=== PATIENT | male | born 1935 | race Caucasian/White ===

== ENCOUNTER 2022-02-27 00:08 | Inpatient (IN) ==
[2022-02-27] MEDS ORDERED: 0.9 % SODIUM CHLORIDE 1,000 ML IV ONE (00:18)
[2022-02-27 00:23] LABS: POC Calcium, Ionized 1.73 (1.16-1.32); POC Creatinine 1.2 (0.6-1.2); POC Potassium 2.5 (3.3-5.1)
--- NOTE | 2022-02-27 00:34 | Emergency Department Note ---
Recheck HPI General Chief Complaint: Recheck/Abnormal Lab/Rx Stated Complaint: Electrolyte deficiency Time Seen by Provider: 02/27/22 00:11 Source: patient and family Mode of arrival: ambulatory Limitations: no limitations and other (Sleeping, lethargic) History of Present Illness HPI Narrative: Narrative: Patient presents to the ED with complaints of abnormal labs. Apparently patient is scheduled to have a feeding tube placed tomorrow with Dr. Chavez. Patient had appoint with Dr. Chavez earlier today where labs were obtained. Lab results show that patient's potassium without a critical level and his calcium was also elevated. Patient states that she was called by Dr. Chavez's partner to come into the ED. states that patient has been extremely weak over the last couple days with decreased energy. She denies fever, chills, nausea, vomiting, abdominal pain, diarrhea, cough, sputum production, shortness of breath. Patient is lethargic and not really participate in my interview so all history was obtained from the . reports that this is very late in the evening for him and he is just super weak and tired. She states that patient has not eaten much food in the last week which is why they were going to have the feeding tube placed. Denies any other alleviating or aggravating factors. Related Data Home Medications Medication Instructions Recorded Confirmed turkey tail See Rx Instructions .Route .COMPLEX 01/16/22 02/27/22 PreserVision AREDS 1,000 mg PO BID 02/27/22 02/27/22 Vitamin D3 2,000 mg PO 3XD 02/27/22 02/27/22 coenzyme Q10 100 mg capsule 300 mg PO QDAY 02/27/22 02/27/22 (CoQ-10) garlic 1,000 mg PO DAILY 02/27/22 02/27/22 metoclopramide HCl 10 mg tablet 1 tab PO QID 02/27/22 02/27/22 spironolactone 25 mg tablet 25 mg PO QDAY 02/27/22 02/27/22 Previous Rx's Medication Instructions Recorded pravastatin 40 mg tablet 40 mg PO HS #90 tabs 09/05/21 Allergies Allergy/AdvReac Type Severity Reaction Status Date / Time Qexcrxx-XIU-TwM Reductase Allergy Intermediate Unknown Verified 02/26/22 15:23 Inhibitor [Qjzhouy-Rtj-Zlt Reductase Inhibitor] Penicillins Allergy Unknown Unknown Verified 02/26/22 15:23 Review of Systems ROS ROS Narrative: Narrative: All systems ED: reviewed and negative except as stated. [facility] Narrative Patient History Narrative: Narrative: Medical/Surgical/Family History All Active Problems (Updated 02/27/22 @ 00:34 by Anmol Garcia DO) Acute hypokalemia (Acute) Hypercalcemia (Acute) Generalized weakness (Acute) Poor nutrition (Acute) Constipation (Acute) Acute dehydration (Acute) Decreased oral intake (Acute) Vitamin B12 deficiency (Acute) Urothelial carcinoma of kidney (Acute) Depression (Acute) Advanced care planning/counseling discussion (Acute) Hypercalcemia (Acute) Disturbances of sensation of smell and taste (Acute) Unintentional weight loss (Acute) Decreased appetite (Acute) Lung nodules (Acute) Kidney mass (Acute) UTI (urinary tract infection) (Acute) HLD (hyperlipidemia) (Acute) Fatigue (Acute) Right knee pain (Acute) Low HDL (under 40) (Acute) Leukocytosis (Acute) Medicare annual wellness visit, subsequent (Chronic) Perirectal abscess (Chronic ~07/2009) Adenomatous colon polyp (Chronic) Myocardial infarction (Chronic) Annual physical exam (Chronic) Impingement syndrome of right shoulder (Chronic) CAD (coronary artery disease) (Chronic ~10/2008) HTN (hypertension) (Chronic) Hyperlipidemia (Chronic) Adenocarcinoma of prostate (Chronic) Encounter for preventative adult health care examination (Chronic) Tubulovillous adenoma of colon (Chronic) Abscess of skin or subcutaneous tissue (Chronic) Medical History Abscess of skin or subcutaneous tissue Adenocarcinoma of prostate Adenomatous colon polyp 05/2001, 05/2004 Advanced care planning/counseling discussion Annual physical exam CAD (coronary artery disease) (~10/2008) Constipation Decreased appetite Depression Disturbances of sensation of smell and taste Encounter for preventative adult health care examination Fatigue HLD (hyperlipidemia) HTN (hypertension) Hypercalcemia Hyperlipidemia Impingement syndrome of right shoulder Leukocytosis Low HDL (under 40) Myocardial infarction Perirectal abscess (~07/2009) Right knee pain Tubulovillous adenoma of colon Unintentional weight loss Urothelial carcinoma of kidney UTI (urinary tract infection) Vitamin B12 deficiency Surgical History History of cholecystectomy (~1997) History of colonoscopy (06/25/17) [facility] - Dr. Matt. Normal, return prn. History of heart bypass surgery (~2008) History of left knee replacement (~09/2014) History of prostatectomy (~02/1996) Family History Father Liver cancer High blood pressure Mother Leukemia High blood pressure Brother Diabetes Social History Smoking Status: Never smoker Alcohol Intake Frequency: does not drink Substance Use: does not use Exam Narrative Narrative: Narrative: General Limitations: no limitations and other (Sleeping, lethargic) General appearance: Present sleepy Head Head: Present atraumatic and normocephalic Eye Eye: Present PERRL and EOMI Respiratory Respiratory: Present normal lung sounds bilaterally; Absent respiratory distress Cardiovascular Cardiovascular: Present regular rate and normal rhythm Neurological Neurological: Present alert and other (Lethargic) Skin Skin: Present warm (WNL) and normal color Course Course Course Narrative: For Rowena abnormality. Labs show that patient was hypokalemic with potassium of 2.5 and hypercalcemia with a calcium level of 3.1. EKG showed no changes. Patient was given IV fluids and started on IV potassium replacement. Patient is lethargic right now so avoiding keep him n.p.o. Case was discussed with hospitalist, Dr. Fletcher, who is graciously excepted patient as admission to the hospital for generalized weakness secondary to electrolyte disorder. request that patient be made a full code which we will respect. Plan was discussed with patient and and his expressed verbal understanding agreement. Consultations Consultation #1: Discussed with hospitalist, Dr. Fletcher, who is graciously excepted patient for admission to the hospital Time: 00:38 Vital Signs Vital signs: Vital Signs Temperature 96.8 F L 02/27/22 00:09 Pulse Rate 88 02/27/22 00:09 Respiratory Rate 14 02/27/22 00:09 Blood Pressure 133/92 02/27/22 00:09 Pulse Oximetry (%) 94 02/27/22 00:09 Oxygen Delivery Method 02/27/22 00:09 Temperature 97 F 02/27/22 02:00 Pulse Rate 146 H 02/27/22 03:30 Respiratory Rate 20 02/27/22 02:10 Blood Pressure 110/65 02/27/22 02:46 Pulse Oximetry (%) 87 L 02/27/22 03:30 Oxygen Delivery Method 02/27/22 01:14 Oxygen Flow Rate (L/min) 2 02/27/22 01:17 MDM MDM Narrative Medical decision making narrative: Narrative: Differential Diagnosis Differential Diagnosis: Hypokalemia, hypercalcemia, poor nutrition Medical Records Medical records reviewed: Yes I reviewed the patient's medical records. Lab Data Lab results reviewed: Yes I reviewed the patient's lab results. Labs: Lab Results 02/27/22 02/27/22 02/27/22 Range/Units 00:21 00:31 00:41 POC Hct 29.0 L (41-55) POC Sodium 135 (133-145) POC Potassium 2.5 L* (3.3-5.1) POC Chloride 96 (96-108) POC Total CO2 33.0 H (22-30) POC BUN 22 H (6-20) POC Creatinine 1.2 (0.6-1.2) POC Glucose 85 (70-105) Calcium 12.4 H (8.6-10.4) mg/dL POC WB Ioniz Calcium 1.73 H* (1.16-1.32) Magnesium 2.5 (1.6-2.5) mg/dL EKG Data EKG #1: EKG attestation: Yes I reviewed and interpreted this EKG. EKG shows normal: sinus rhythm Rate: normal Rhythm: NSR P waves: LAE Heart block present: None ST segment elevation in: None ST segment depression in: None Hyperacute T waves: None QTc: normal QRS morphology: Present normal Interpretation: no acute changes Core Measures AMI Core Measures Followed: Yes Discharge Plan Patient/Caregiver Discharge Instructions Pt seen by BI SPECIALIST/PA only: No Clinical Impression: Acute hypokalemia, Hypercalcemia, Generalized weakness, Poor nutrition Activity: resume usual activities as tolerated Patient Disposition: Xfer As Inpt ([facility]) Condition: Fair Discharge Date/Time: 02/27/22 01:45 Discharge Location: [facility] Discharge Comment: to 116
[2022-02-27] MEDS ORDERED: POTASSIUM CHLORIDE 40 MEQ in DEXTROSE 5% IN WATER 500 ML IV ONE ×2 (00:36→16:00)
[2022-02-27] MEDS ORDERED: ONDANSETRON 4 MG/2 ML VIAL IV ONE (00:38)
[2022-02-27] MEDS ORDERED: ACETAMINOPHEN 325 MG TABLET PO PRN (00:38)
[2022-02-27] MEDS ORDERED: POTASSIUM CHLORIDE 40 MEQ/20 ML VIAL IV ONE (01:01)
[2022-02-27] MEDS: 0.9 % SODIUM CHLORIDE 1,000 ML IV SCH ×3 (03:25→20:45)
--- NOTE | 2022-02-27 08:16 | Internal Med History&Physical ---
HPI History of Present Illness Patient information: Note initiated : 02/27/22 at 8:04 am Service Date, if different from initiated Date: [] Patient: Vipul Tucker 86 y/o M admitted on 02/27/22 for Electrolyte deficiency. Chief Complaint: [] History of present illness: Mr. Tucker is a 86 year old M Presents to the ED for abnormal laboratory work. 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 Patient has has had significant weight loss and poor appetite. also says he sometimes has a hard time swallowing. He was scheduled to get a feeding tube placed by the surgeon who got some updated labs and found his laboratory work to be abnormal with a low potassium and elevated calcium. Preop chest x-ray also showed innumerable pulmonary parenchymal masses that have increased in size since January 24 imaging. Review of Systems: Pertinent positives as above. Denies headache/fever/chills/nausea/vomiting/chest or abdominal pain/cough/dyspnea/diarrhea. Remaining 10 point review of system reviewed negative PFSH PFSH All Active Problems (Updated 02/27/22 @ 00:34 by Anmol Garcia DO) Acute hypokalemia (Acute) Hypercalcemia (Acute) Generalized weakness (Acute) Poor nutrition (Acute) Constipation (Acute) Acute dehydration (Acute) Decreased oral intake (Acute) Vitamin B12 deficiency (Acute) Urothelial carcinoma of kidney (Acute) Depression (Acute) Advanced care planning/counseling discussion (Acute) Hypercalcemia (Acute) Disturbances of sensation of smell and taste (Acute) Unintentional weight loss (Acute) Decreased appetite (Acute) Lung nodules (Acute) Kidney mass (Acute) UTI (urinary tract infection) (Acute) HLD (hyperlipidemia) (Acute) Fatigue (Acute) Right knee pain (Acute) Low HDL (under 40) (Acute) Leukocytosis (Acute) Medicare annual wellness visit, subsequent (Chronic) Perirectal abscess (Chronic ~07/2009) Adenomatous colon polyp (Chronic) Myocardial infarction (Chronic) Annual physical exam (Chronic) Impingement syndrome of right shoulder (Chronic) CAD (coronary artery disease) (Chronic ~10/2008) HTN (hypertension) (Chronic) Hyperlipidemia (Chronic) Adenocarcinoma of prostate (Chronic) Encounter for preventative adult health care examination (Chronic) Tubulovillous adenoma of colon (Chronic) Abscess of skin or subcutaneous tissue (Chronic) Medical History Abscess of skin or subcutaneous tissue Adenocarcinoma of prostate Adenomatous colon polyp 05/2001, 05/2004 Advanced care planning/counseling discussion Annual physical exam CAD (coronary artery disease) (~10/2008) Constipation Decreased appetite Depression Disturbances of sensation of smell and taste Encounter for preventative adult health care examination Fatigue HLD (hyperlipidemia) HTN (hypertension) Hypercalcemia Hyperlipidemia Impingement syndrome of right shoulder Leukocytosis Low HDL (under 40) Myocardial infarction Perirectal abscess (~07/2009) Right knee pain Tubulovillous adenoma of colon Unintentional weight loss Urothelial carcinoma of kidney UTI (urinary tract infection) Vitamin B12 deficiency Surgical History History of cholecystectomy (~1997) History of colonoscopy (06/25/17) [facility] - Dr. Gutierrez. Normal, return prn. History of heart bypass surgery (~2008) History of left knee replacement (~09/2014) History of prostatectomy (~02/1996) Family History Father Liver cancer High blood pressure Mother Leukemia High blood pressure Brother Diabetes Social History marital status: occupational status: employed occupation: Self-employed smoking status: Never smoker alcohol intake frequency: does not drink substance use type: does not use MEDS/ALLERGIES Home Medications and Allergies Home Medications Medication Instructions Recorded Confirmed Type pravastatin 40 mg tablet 40 mg PO HS #90 tabs 09/05/21 02/27/22 Rx turkey tail See Rx Instructions .Route .COMPLEX 01/16/22 02/27/22 History PreserVision AREDS 1,000 mg PO BID 02/27/22 02/27/22 History Vitamin D3 2,000 mg PO 3XD 02/27/22 02/27/22 History coenzyme Q10 100 mg capsule 300 mg PO QDAY 02/27/22 02/27/22 History (CoQ-10) garlic 1,000 mg PO DAILY 02/27/22 02/27/22 History metoclopramide HCl 10 mg tablet 1 tab PO QID 02/27/22 02/27/22 History spironolactone 25 mg tablet 25 mg PO QDAY 02/27/22 02/27/22 History Allergies Allergy/AdvReac Type Severity Reaction Status Date / Time Wpnzzde-PXP-SfP Reductase Allergy Intermediate Unknown Verified 02/26/22 15:23 Inhibitor [Kqgluir-Awf-Wzz Reductase Inhibitor] Penicillins Allergy Unknown Unknown Verified 02/26/22 15:23 EXAM Constitutional Vitals: Temp Pulse Resp BP Pulse Ox O2 Del Method O2 Flow Rate 96.6 F L 65 12 105/61 95 2 02/27/22 08:00 02/27/22 08:00 02/27/22 08:00 02/27/22 08:00 02/27/22 08:00 02/27/22 07:15 02/27/22 07:15 Exam: General: Alert, Awake, No acute Distress Eyes/N/T: EOMI, PERRL, Head/Neck: neck supple, normocephalic atraumatic CV: RRR, No murmurs, normal s1/s2 Pulm: Clear b/l, no wheezing/rhonchi/rales Abd: soft, nontender, +BS x4 Ext: no clubbing/cyanosis, b/l LE 2+ edema Neuro: Alert, no focal deficits, moves all extremities, CN 2-12 grossly intact, symmetrical strength b/l upper/lower, sensations intact b/l upper/lower Skin: warm/dry DATA Data Completed and Pending Labs: Labs from last 24 hours 02/27/22 02/27/22 02/27/22 00:41 00:31 00:21 POC Hct 29.0 L POC Sodium 135 POC Potassium 2.5 L* POC Chloride 96 POC Total CO2 33.0 H POC BUN 22 H POC Creatinine 1.2 POC Glucose 85 Calcium 12.4 H POC WB Ioniz Calcium 1.73 H* Magnesium 2.5 A/P Narrative A/P Narrative: A: *Electrolyte d/o (Hypokalemia/Hypercalcemia): -hypercalcemia of malignancy (likely PTHrp mechanism given tissue of origin) vs Vit D supp home med *Urothelial CA Stage IV, with Lung mets: following with oncology *Generalized weakness/deconditioning/weight loss and poor appetite: 2/2 above -plan was for feeding tube to be placed next wednesday *Chronic Leukocytosis & Anemia: 2/2 above P: -replete potassium -IVF, Bisphosphonate, f/u calcium -PTHrp,Vit D metabolites -Dietary consult - -PT/OT -CM for placement needs -f/u with oncology/pcp/Dr. Chavez -ppx: lovenox Time Spent With Patient Time: Total time spent is greater than 50% in coordination of care (as documented) at patient's floor/unit and/or counseling patient: Total time spent with greater than 50% in coordination of care (as documented) at patient's floor/unit and/or counseling patient:: Greater than 70 minutes QUALITY VTE Deep Vein Thrombosis/Pulmonary Embolism Present on Admission: No
[2022-02-27] MEDS ORDERED: ZOLEDRONIC AC/MANNITOL/0.9NACL 4 MG/100 ML PIGGYBACK IV ONE (08:23)
[2022-02-27] MEDS: VIT A,C & E/LUTEIN/MINERALS TABLET PO SCH ×3 (08:50→20:45)
[2022-02-27] MEDS ORDERED: PAMIDRONATE 60 MG in 0.9 % SODIUM CHLORIDE 500 ML IV ONE (09:00)
[2022-02-27] MEDS ORDERED: SENNOSIDES 1 TABLET PO PRN (10:11)
[2022-02-27] MEDS ORDERED: POTASSIUM CHLORIDE 20 MEQ TABLET PO PRN ×2 (10:11)
[2022-02-27] MEDS ORDERED: ONDANSETRON 4 MG/2 ML VIAL IV PRN (10:11)
[2022-02-27] MEDS ORDERED: POTASSIUM CHLORIDE 40 MEQ in DEXTROSE 5% IN WATER 500 ML IV PRN (10:11)
[2022-02-27] MEDS ORDERED: POLYETHYLENE GLYCOL 3350 17 GM PACKET PO PRN (10:11)
[2022-02-27] MEDS ORDERED: MAGNESIUM SULFATE 2 GM/50 ML BAG IV PRN (10:11)
[2022-02-27] MEDS ORDERED: IPRATROPIUM/ALBUTEROL 3 ML AMPUL.NEB NEB PRN (10:11)
[2022-02-27 11:49] LABS: ALT/SGPT 14 U/L (<40); AST/SGOT 24 U/L (<40); Albumin/Globulin Ratio 0.7 (1.0-2.3); Alkaline Phosphatase 87 U/L (39-117); Bilirubin,Direct 0.3 mg/dL (<0.3); Bilirubin,Total 0.5 mg/dL (0.1-1.0); Blood Urea Nitrogen 13 mg/dL (8-23); Calcium 11.8 mg/dL (8.6-10.4); Carbon Dioxide 32 mmol/L (22-30); Chloride 102 mmol/L (96-108); Globulin 2.9 gm/dL (2.2-3.7); Glomerular Filtration Rate 77; Glucose 82 mg/dL (70-105); Lactate Dehydrogenase 211 U/L (135-225); Phosphorous 2.5 mg/dL (2.5-4.5); Triglycerides 83 mg/dL (<150); Uric Acid 5.6 mg/dL (2.5-8.0)
[2022-02-27 12:35] LABS: Vitamin D 25 Hydroxy-SO 73.74 ng/mL (>30.00)
[2022-02-27] MEDS: 0.9 % SODIUM CHLORIDE 10 ML SYRINGE IV SCH ×2 (14:09→20:45)
[2022-02-27] MEDS: DOCUSATE SODIUM 100 MG CAPSULE PO SCH (20:45)
[2022-02-28] MEDS: 0.9 % SODIUM CHLORIDE 1,000 ML IV SCH ×2 (02:55→09:31)
[2022-02-28] MEDS: 0.9 % SODIUM CHLORIDE 10 ML SYRINGE IV SCH ×3 (06:34→21:48)
[2022-02-28 07:23] LABS: ALT/SGPT 11 U/L (<40); AST/SGOT 21 U/L (<40); Albumin 2.1 gm/dL (3.2-5.2); Alkaline Phosphatase 74 U/L (39-117); Bilirubin,Direct < 0.2 mg/dL (0-0.3); Bilirubin,Total 0.4 mg/dL (0.1-1.0); Blood Urea Nitrogen 12 mg/dL (8-23); Calcium 10.8 mg/dL (8.6-10.4); Carbon Dioxide 28 mmol/L (22-30); Chloride 107 mmol/L (96-108); Globulin 2.1 gm/dL (2.2-3.7); Glomerular Filtration Rate 86; Glucose 84 mg/dL (70-105); Lactate Dehydrogenase 209 U/L (135-225); Phosphorous 1.6 mg/dL (2.5-4.5); Triglycerides 92 mg/dL (<150); Uric Acid 4.8 mg/dL (2.5-8.0)
--- NOTE | 2022-02-28 08:00 | Internal Med Progress Note ---
SUBJECTIVE Subjective Patient information: Note initiated : 02/28/22 at 7:54 am Service Date, if different from initiated Date: [] Patient: Vipul Tucker 86 y/o M admitted on 02/27/22 for Electrolyte deficiency. Chief Complaint: [] Interval history: History of present illness: Mr. Tucker is a 86 year old M Presents to the ED for abnormal laboratory work. 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 Patient has has had significant weight loss and poor appetite. also says he sometimes has a hard time swallowing. He was scheduled to get a feeding tube placed by the surgeon who got some updated labs and found his laboratory work to be abnormal with a low potassium and elevated calcium. Preop chest x-ray also showed innumerable pulmonary parenchymal masses that have increased in size since January 24 imaging. 02/28 No overnight events. Potassium still mildly low but stable. Phosphorus low. Calcium improving. Status post pamidronate Review of Systems: denies headache/fever/chills/nausea/vomiting/chest or abdominal pain/cough/dyspnea/diarrhea. Otherwise see above. Constitutional Vitals: Vital Signs Temp Pulse Resp BP Pulse Ox O2 Del Method O2 Flow Rate 98.2 F 80 16 105/58 96 2 02/28/22 04:00 02/27/22 23:43 02/28/22 04:00 02/28/22 04:00 02/28/22 04:00 02/27/22 20:00 02/28/22 04:00 Period Temp Pulse Resp BP Sys/Downey Pulse Ox O2 Del Method O2 Flow Rate Last 24 Hr 96.6 F-98.2 F 65-89 12-16 99-141/57-93 94-96 Nasal Cannula- Nasal Cannula 2-2 Intake and Output 02/27/22 02/28/22 02/28/22 21:59 05:59 13:59 Intake Total 1620 1720 480 Output Total 51 104 120 Balance 1569 1616 360 Weight 72.631 kg Intake & Output: Intake & Output 02/27/22 02/28/22 02/28/22 21:59 05:59 13:59 Intake Total 1620 1720 480 Output Total 51 104 120 Balance 1569 1616 360 Weight 72.631 kg Intake: IV 1520 520 Sodium Chloride 0.9% 1,000 ml @ 1000 75 mls/hr IV .[id number] [facility] Rx#: [id number] Aredia 60 mg In Sodium Chloride 520 0.9% 500 ml @ 130 mls/hr IV ONCE ONE Rx#:[id number] Potassium Chloride 40 Meq In 520 Dextrose 5% in Water 500 ml @ 130 mls/hr IV ONCE ONE Rx#: [id number] Oral 100 1200 480 Output: Void Amount 50 100 120 # of times incontinent of urine 1 4 Other: Meal Dinner Percent of Meal Consumed bites. Feeding Ability Total Assistance Urine Appearance Clear Clear Urine Color Yellow Yellow Pale Urine Odor Normal Stool Size Smear Smear Stool Color Brown Brown Stool Consistency Loose Loose # Voids 1 1 # Bowel Movements 1 # of times incontinent of 1 Bowels Exam: General: Alert, Awake, No acute Distress Eyes/N/T: EOMI, Head/Neck: neck supple, CV: RRR, No murmurs, Pulm: Clear b/l, no wheezing/rhonchi/rales Abd: soft, nontender, +BS x4 Ext: no clubbing/cyanosis, b/l LE 2+ edema Neuro: Alert, no focal deficits, moves all extremities, Skin: warm/dry OBJ DATA Labs CBC & Chem 7: 02/28/22 05:42 Labs: Abnormal Lab Results 02/28/22 02/27/22 02/27/22 05:42 10:20 00:31 POC Hct POC Potassium Potassium 3.1 L 3.0 L Carbon Dioxide 32 H POC Total CO2 Anion Gap 4.0 L 5.0 L POC BUN Calcium 10.8 H 11.8 H 12.4 H POC WB Ioniz Calcium Phosphorus 1.6 L Direct Bilirubin 0.3 H Total Protein 4.2 L 4.9 L Albumin 2.1 L 2.0 L Globulin 2.1 L Albumin/Globulin Ratio 0.7 L 02/27/22 00:21 POC Hct 29.0 L POC Potassium 2.5 L* Potassium Carbon Dioxide POC Total CO2 33.0 H Anion Gap POC BUN 22 H Calcium POC WB Ioniz Calcium 1.73 H* Phosphorus Direct Bilirubin Total Protein Albumin Globulin Albumin/Globulin Ratio Meds: Medications Acetaminophen (Acetaminophen 325 Mg Tablet) 650 mg PO Q6HP PRN; Protocol PRN Reason: Per Pain Protocol/Fever > 101 Albuterol/Ipratropium (Ipratropium/Albuterol 3 Ml Ampul.Neb) 3 ml NEB Q4HP PRN PRN Reason: Shortness Of Breath Docusate Sodium (Docusate Sodium 100 Mg Capsule) 100 mg PO BID [facility] Last Admin: 02/27/22 20:45 Dose: 100 mg Enoxaparin Sodium (Enoxaparin 40 Mg/0.4 Ml Syringe) 40 mg SQ DAILY [facility] Sodium Chloride (Sodium Chloride 0.9%) 1,000 mls @ 75 mls/hr IV .[id number] [facility] Last Admin: 02/28/22 02:55 Dose: Not Given Potassium Chloride 40 meq/ (Dextrose) 520 mls @ 130 mls/hr IV UD PRN PRN Reason: Potassium < 3 Magnesium Sulfate (Magnesium Sulfate) 2 gm in 50 mls @ 50 mls/hr IV UD PRN PRN Reason: Magnesium </= 1.6 Multivitamins/Minerals (Vit A,C & E/Lutein/Minerals Tablet) 1 tab PO BID [facility] Last Admin: 02/27/22 20:45 Dose: 1 tab Ondansetron HCl (Ondansetron 4 Mg/2 Ml Vial) 4 mg IV Q4HP PRN PRN Reason: Nausea And Vomiting Polyethylene Glycol (Polyethylene Glycol 3350 17 Gm Packet) 17 gm PO DAILYP PRN PRN Reason: Constipation Potassium Chloride (Potassium Chloride 20 Meq Tablet) 40 meq PO UD PRN PRN Reason: Potssium is 3-3.5 Potassium Chloride (Potassium Chloride 20 Meq Tablet) 40 meq PO UD PRN PRN Reason: Potassium < 3 Senna (Sennosides 1 Tablet) 2 tab PO DAILYP PRN PRN Reason: Constipation Sodium Chloride (0.9 % Sodium Chloride 10 Ml Syringe) 10 ml IV Q8 [facility] Last Admin: 02/28/22 06:34 Dose: Not Given A/P Narrative A/P Narrative: A: *Electrolyte d/o (Hypokalemia/Hypercalcemia/Hypophos): -hypercalcemia of malignancy (likely PTHrp mechanism given tissue of origin) vs Vit D supp home med *Urothelial CA Stage IV, with many Lung mets: following with oncology *Generalized weakness/deconditioning/weight loss and poor appetite: 2/2 above -plan was for feeding tube to be placed next wednesday *Chronic Leukocytosis & Anemia: 2/2 above *Oropharyngeal Dysphagia, Mod-Sev: P: -replete potassium/phos -IVF, s/p Bisphosphonate, f/u calcium -PTHrp,Vit D metabolites -Dietary consult -dysphagia diet per ST, f/u with GI or Dr. Chavez to eval for eso stricture -PT/OT -CM for placement needs -f/u with oncology/pcp/Dr. Chavez -ppx: lovenox Time Spent With Patient Time: Total time spent is greater than 50% in coordination of care (as documented) at patient's floor/unit and/or counseling patient: Total time spent with greater than 50% in coordination of care (as documented) at patient's floor/unit and/or counseling patient:: 25 - 35 minutes QUALITY VTE Deep Vein Thrombosis/Pulmonary Embolism Present on Admission: No
[2022-02-28] MEDS: ENOXAPARIN 40 MG/0.4 ML SYRINGE SQ SCH (08:45)
[2022-02-28] MEDS: NEUTRA PHOS 1 PACKET PO SCH ×2 (08:46→21:48)
[2022-02-28] MEDS: DOCUSATE SODIUM 100 MG CAPSULE PO SCH ×2 (08:46→19:31)
[2022-02-28] MEDS: VIT A,C & E/LUTEIN/MINERALS TABLET PO SCH ×2 (08:46→21:48)
[2022-02-28] MEDS: PHOSPHORUS 250 MG TABLET PO SCH ×2 (08:46→21:48)
--- NOTE | 2022-02-28 10:20 | Discharge Summary ---
Discharge Provider Provider IMPORTANT FOLLOW-UP INFORMATION FOR PCP: Patient information: Note initiated : 02/28/22 at 10:19 am Service Date, if different from initiated Date: [] Patient: Vipul Tucker 86 y/o M admitted on 02/27/22 for Electrolyte deficiency. Chief Complaint: [] Date of admission: 02/27/22 01:45 Discharge date: 03/01/22 Primary care physician: Andrei Sanon MD Consults: 02/27/22 Consult to Physician [CONS] Stat Comment: Consulting Provider: Stephen Fletcher Reason For Exam: Physician to Consult COURSE Hospital Course Hospital course: History of present illness: Mr. Tucker is a 86 year old M Presents to the ED for abnormal laboratory work. 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 Patient has has had significant weight loss and poor appetite. also says he sometimes has a hard time swallowing. He was scheduled to get a feeding tube placed by the surgeon who got some updated labs and found his laboratory work to be abnormal with a low potassium and elevated calcium. Preop chest x-ray also showed innumerable pulmonary parenchymal masses that have increased in size since January 24 imaging. 02/28 No overnight events. Potassium still mildly low but stable. Phosphorus low. Calcium improving. Status post pamidronate 03/01 No overnight event or new complaints. Lab work looks good. Stable for discharge follow-up with Dr. Chavez and oncology and PCP. 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 Chavez to eval for eso stricture -f/u with oncology/pcp/Dr. Chavez Discharge diagnosis: Severe electrolyte imbalance. Including hypokalemia hypercalcemia hyper Fo Secondary discharge diagnosis: Urothelial cancer stage IV with lung metastases generalized weakness deconditioning weight loss poor appetite chronic leukocytosis anemia oral pharyngeal dysphagia Time Spent with Patient Time attestation: Total time spent providing and/or coordinating discharge services: Time spent: Greater than 30 minutes EXAM Constitutional Vitals: Temp Pulse Resp BP Pulse Ox O2 Del Method O2 Flow Rate 98.2 F 85 16 91/56 94 2 02/28/22 04:00 02/28/22 08:01 02/28/22 04:00 02/28/22 08:01 02/28/22 10:02 02/28/22 10:02 02/28/22 10:02 Discharge Data Data Completed and Pending Labs on day of discharge: Labs from last 24 hours 02/28/22 02/27/22 02/27/22 05:42 10:20 10:16 Sodium 139 139 Potassium 3.1 L 3.0 L Chloride 107 102 Carbon Dioxide 28 32 H Anion Gap 4.0 L 5.0 L BUN 12 13 Creatinine 0.7 0.9 GFR Calculation 86 77 Glucose 84 82 Uric Acid 4.8 5.6 Calcium 10.8 H 11.8 H Phosphorus 1.6 L 2.5 Magnesium 2.1 2.5 Total Bilirubin 0.4 0.5 Direct Bilirubin < 0.2 0.3 H GGT 10 16 AST 21 24 ALT 11 14 Alkaline Phosphatase 74 87 Lactate Dehydrogenase 209 211 Total Protein 4.2 L 4.9 L Albumin 2.1 L 2.0 L Globulin 2.1 L 2.9 Albumin/Globulin Ratio 1.0 0.7 L Triglycerides 92 83 25-OH Vitamin D Total 73.74 Vit D 1,25-Dihydroxy Pending 1,25 Dihydroxy Vit D2 Pending 1,25 Dihydroxy Vit D3 Pending PTH Related Protein 02/27/22 10:15 Sodium Potassium Chloride Carbon Dioxide Anion Gap BUN Creatinine GFR Calculation Glucose Uric Acid Calcium Phosphorus Magnesium Total Bilirubin Direct Bilirubin GGT AST ALT Alkaline Phosphatase Lactate Dehydrogenase Total Protein Albumin Globulin Albumin/Globulin Ratio Triglycerides 25-OH Vitamin D Total Vit D 1,25-Dihydroxy 1,25 Dihydroxy Vit D2 1,25 Dihydroxy Vit D3 PTH Related Protein Pending Discharge Plan Patient/Caregiver Discharge Instructions Activity: increase activity as tolerated and resume usual activities as tolerated Diet: Dysphagia Level 4 Pureed Foods and Thickened Liquids Activity Restrictions/Additional Instructions: Follow-up with oncologist and Dr. Chavez. Honey thick liquids and level 4 diet Prescriptions: Continued pravastatin 40 mg tablet 40 mg PO HS Qty: 90 3RF turkey tail 1 tab tablet See Rx Instructions .ROUTE .COMPLEX Rx Instructions: 1 tab orally 8 x daily PreserVision AREDS 1,000 mg 1,000 mg PO BID Vitamin D3 2,000 mg 2,000 mg PO 3XD garlic 1,000 mg 1,000 mg PO DAILY metoclopramide HCl 10 mg tablet 1 tab PO QID Rx Instructions: before meals and at bedtime spironolactone 25 mg tablet 25 mg PO QDAY coenzyme Q10 [CoQ-10] 100 mg Capsule 300 mg PO QDAY Follow Up Plan Follow up with: Andrei Sanon MD [Primary Care Provider] - Steven Chavez MD [Physician] - Patient Disposition: Home, Self-Care Prognosis: Fair Overall status at discharge: patient is progressing back to baseline Discharge Orders: Discharge Order (Routine); Ordered 03/01/22 Ordered By: Stephen Fletcher [facility] VTE Deep Vein Thrombosis/Pulmonary Embolism Present on Admission: No
[2022-02-28 15:57] LABS: Blood Urea Nitrogen 15 mg/dL (8-23); Calcium 10.6 mg/dL (8.6-10.4); Carbon Dioxide 28 mmol/L (22-30); Chloride 104 mmol/L (96-108); Glomerular Filtration Rate 81; Glucose 92 mg/dL (70-105)
[2022-02-28] MEDS ORDERED: POTASSIUM CHLORIDE 40 MEQ in DEXTROSE 5% IN WATER 500 ML IV ONE (16:08)
[2022-02-28] MEDS ORDERED: POTASSIUM PHOSPHATE 40 MEQ in DEXTROSE 5% IN WATER 500 ML IV ONE (16:08)
[2022-02-28] MEDS ORDERED: POTASSIUM PHOSPHATE 66 MEQ/15 ML VIAL IV ONE (17:58)
[2022-02-28] MEDS: POTASSIUM CHLORIDE 20 MEQ TABLET PO ONE ×2 (18:04→18:11)
[2022-02-28] MEDS ORDERED: POTASSIUM CHLORIDE 20 MEQ PACKET PO ONE (18:14)
[2022-03-01] MEDS: 0.9 % SODIUM CHLORIDE 10 ML SYRINGE IV SCH ×3 (06:00→20:23)
[2022-03-01 06:39] LABS: ALT/SGPT 12 U/L (<40); AST/SGOT 21 U/L (<40); Albumin 1.9 gm/dL (3.2-5.2); Albumin/Globulin Ratio 0.9 (1.0-2.3); Alkaline Phosphatase 73 U/L (39-117); Bilirubin,Direct < 0.2 mg/dL (0-0.3); Bilirubin,Total 0.4 mg/dL (0.1-1.0); Blood Urea Nitrogen 11 mg/dL (8-23); Calcium 10.3 mg/dL (8.6-10.4); Carbon Dioxide 26 mmol/L (22-30); Chloride 104 mmol/L (96-108); Globulin 2.2 gm/dL (2.2-3.7); Glomerular Filtration Rate 86; Glucose 85 mg/dL (70-105); Lactate Dehydrogenase 199 U/L (135-225); Phosphorous 3.1 mg/dL (2.5-4.5); Triglycerides 99 mg/dL (<150); Uric Acid 4.2 mg/dL (2.5-8.0)
[2022-03-01] MEDS: DOCUSATE SODIUM 100 MG CAPSULE PO SCH ×2 (09:14→19:33)
[2022-03-01] MEDS: ENOXAPARIN 40 MG/0.4 ML SYRINGE SQ SCH (09:23)
[2022-03-01] MEDS: VIT A,C & E/LUTEIN/MINERALS TABLET PO SCH ×2 (09:25→20:23)
--- NOTE | 2022-03-01 10:32 | Internal Med Progress Note ---
SUBJECTIVE Subjective Patient information: Note initiated : 03/01/22 at 10:28 am Service Date, if different from initiated Date: [] Patient: Vipul Tucker 86 y/o M admitted on 02/27/22 for Electrolyte deficiency. Chief Complaint: [] Interval history: History of present illness: Mr. Tucker is a 86 year old M Presents to the ED for abnormal laboratory work. 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 Patient has has had significant weight loss and poor appetite. also says he sometimes has a hard time swallowing. He was scheduled to get a feeding tube placed by the surgeon who got some updated labs and found his laboratory work to be abnormal with a low potassium and elevated calcium. Preop chest x-ray also showed innumerable pulmonary parenchymal masses that have increased in size since January 24 imaging. 02/28 No overnight events. Potassium still mildly low but stable. Phosphorus low. Calcium improving. Status post pamidronate 03/01 No overnight event or new complaints. Lab work looks good. Stable for discharge follow-up with Dr. Chavez and oncology and PCP. Given his weakness and decline will likely transition to swing bed in the morning and then procedure for Dr. Chavez on Wednesday. Review of Systems: denies headache/fever/chills/nausea/vomiting/chest or abdominal db n/cough/dyspnea/diarrhea. Otherwise see above. Constitutional Vitals: Vital Signs Temp Pulse Resp BP Pulse Ox O2 Del Method O2 Flow Rate 97.7 F 76 16 108/64 93 1.5 03/01/22 07:31 02/28/22 19:03 03/01/22 07:31 03/01/22 07:31 03/01/22 09:25 03/01/22 09:25 03/01/22 00:49 Period Temp Pulse Resp BP Sys/Downey Pulse Ox O2 Del Method O2 Flow Rate Last 24 Hr 97.4 F-97.9 F 76-77 14-20 95-123/62-67 93-100 Room Air 1-1.5 Intake and Output 02/28/22 03/01/22 03/01/22 21:59 05:59 13:59 Intake Total 761 1199.0909 Output Total 202 206 51 Balance 396 041.7983 -51 Weight 76.113 kg Intake & Output: Intake & Output 02/28/22 03/01/22 03/01/22 21:59 05:59 13:59 Intake Total 761 1199.0909 Output Total 202 206 51 Balance 314 327.5960 -51 Weight 76.113 kg Intake: IV 636 1029.0909 Sodium Chloride 0.9% 1,000 ml @ 636 75 mls/hr IV .[id number] [facility] Rx#: [id number] Potassium Chloride 40 Meq In 520 Dextrose 5% in Water 500 ml @ 130 mls/hr IV ONCE ONE Rx#: [id number] Potassium Phosphate 40 Meq In 509.0909 Dextrose 5% in Water 500 ml @ 127.273 mls/hr IV ONCE ONE Rx#: [id number] Oral 125 170 Output: Void Amount 200 200 50 # of times incontinent of urine 2 6 1 Other: Meal Breakfast Percent of Meal Consumed 100% Feeding Ability Total Assistance Urine Appearance Clear Clear Clear Urine Color Bright Yellow Light Evelyne Dark Yellow Urine Odor Normal Strong Normal Stool Size Small Small Stool Color Brown Brown Stool Consistency Liquid Liquid Watery # Voids 1 1 # Bowel Movements 1 # of times incontinent of 1 1 Bowels Exam: General: Alert, Awake, No acute Distress Eyes/N/T: EOMI, Head/Neck: neck supple, CV: RRR, No murmurs, Pulm: Clear b/l, no wheezing/rhonchi/rales Abd: soft, nontender, +BS x4 Ext: no clubbing/cyanosis, b/l LE edema Neuro: Alert, no focal deficits, moves all extremities, Skin: warm/dry OBJ DATA Labs CBC & Chem 7: 03/01/22 05:33 Labs: Abnormal Lab Results 03/01/22 02/28/22 02/28/22 05:33 15:01 05:42 POC Hct POC Potassium Potassium 3.0 L 3.1 L Carbon Dioxide POC Total CO2 Anion Gap 6.0 L 5.0 L 4.0 L POC BUN Calcium 10.6 H 10.8 H POC WB Ioniz Calcium Phosphorus 2.0 L 1.6 L Direct Bilirubin Total Protein 4.1 L 4.2 L Albumin 1.9 L 2.1 L Globulin 2.1 L Albumin/Globulin Ratio 0.9 L 02/27/22 02/27/22 02/27/22 10:20 00:31 00:21 POC Hct 29.0 L POC Potassium 2.5 L* Potassium 3.0 L Carbon Dioxide 32 H POC Total CO2 33.0 H Anion Gap 5.0 L POC BUN 22 H Calcium 11.8 H 12.4 H POC WB Ioniz Calcium 1.73 H* Phosphorus Direct Bilirubin 0.3 H Total Protein 4.9 L Albumin 2.0 L Globulin Albumin/Globulin Ratio 0.7 L Meds: Medications Acetaminophen (Acetaminophen 325 Mg Tablet) 650 mg PO Q6HP PRN; Protocol PRN Reason: Per Pain Protocol/Fever > 101 Albuterol/Ipratropium (Ipratropium/Albuterol 3 Ml Ampul.Neb) 3 ml NEB Q4HP PRN PRN Reason: Shortness Of Breath Docusate Sodium (Docusate Sodium 100 Mg Capsule) 100 mg PO BID [facility] Last Admin: 03/01/22 09:14 Dose: Not Given Enoxaparin Sodium (Enoxaparin 40 Mg/0.4 Ml Syringe) 40 mg SQ DAILY [facility] Last Admin: 03/01/22 09:23 Dose: 40 mg Potassium Chloride 40 meq/ (Dextrose) 520 mls @ 130 mls/hr IV UD PRN PRN Reason: Potassium < 3 Magnesium Sulfate (Magnesium Sulfate) 2 gm in 50 mls @ 50 mls/hr IV UD PRN PRN Reason: Magnesium </= 1.6 Multivitamins/Minerals (Vit A,C & E/Lutein/Minerals Tablet) 1 tab PO BID [facility] Last Admin: 03/01/22 09:25 Dose: 1 tab Ondansetron HCl (Ondansetron 4 Mg/2 Ml Vial) 4 mg IV Q4HP PRN PRN Reason: Nausea And Vomiting Polyethylene Glycol (Polyethylene Glycol 3350 17 Gm Packet) 17 gm PO DAILYP PRN PRN Reason: Constipation Potassium Chloride (Potassium Chloride 20 Meq Tablet) 40 meq PO UD PRN PRN Reason: Potssium is 3-3.5 Potassium Chloride (Potassium Chloride 20 Meq Tablet) 40 meq PO UD PRN PRN Reason: Potassium < 3 Senna (Sennosides 1 Tablet) 2 tab PO DAILYP PRN PRN Reason: Constipation Sodium Chloride (0.9 % Sodium Chloride 10 Ml Syringe) 10 ml IV Q8 [facility] Last Admin: 03/01/22 06:00 Dose: 10 ml A/P Narrative A/P Narrative: A: *Electrolyte d/o (Hypokalemia/Hypercalcemia/Hypophos): improved -hypercalcemia of malignancy (likely PTHrp mechanism given tissue of origin) vs Vit D supp home med *Urothelial CA Stage IV, with many Lung mets: following with oncology *Generalized weakness/deconditioning/weight loss and poor appetite: 2/2 above -plan was for feeding tube to be placed next wednesday *Chronic Leukocytosis & Anemia: 2/2 above *Oropharyngeal Dysphagia, Mod-Sev: P: -replete and monitor electrolytes prn -IVF, s/p Bisphosphonate, -PTHrp,Vit D metabolites -Dietary consult -dysphagia diet per ST, f/u with GI or Dr. Chavez to eval for eso stricture -PT/OT -CM for placement needs -f/u with oncology/pcp/Dr. Chavez -ppx: lovenox Time Spent With Patient Time: Total time spent is greater than 50% in coordination of care (as documented) at patient's floor/unit and/or counseling patient: QUALITY VTE Deep Vein Thrombosis/Pulmonary Embolism Present on Admission: No
[2022-03-01] MEDS ORDERED: diphenhydrAMINE 25 MG CAPSULE PO PRN (10:35)
[2022-03-01] MEDS: MELATONIN 3 MG TABLET PO SCH (20:23)
[2022-03-01] MEDS ORDERED: LOPERAMIDE 2 MG CAPSULE PO ONE (20:28)
[2022-03-02] MEDS: 0.9 % SODIUM CHLORIDE 10 ML SYRINGE IV SCH ×3 (05:59→20:37)
[2022-03-02] MEDS: VIT A,C & E/LUTEIN/MINERALS TABLET PO SCH ×2 (08:19→20:38)
[2022-03-02] MEDS: DOCUSATE SODIUM 100 MG CAPSULE PO SCH ×2 (08:20→20:36)
[2022-03-02] MEDS: ENOXAPARIN 40 MG/0.4 ML SYRINGE SQ SCH (08:20)
[2022-03-02] MEDS: SPIRONOLACTONE 25 MG TABLET PO SCH (08:20)
[2022-03-02] MEDS: LOPERAMIDE 2 MG CAPSULE PO PRN (09:48)
--- NOTE | 2022-03-02 11:41 | Internal Med Progress Note ---
SUBJECTIVE Subjective Patient information: Note initiated : 03/02/22 at 11:38 am Service Date, if different from initiated Date: [] Patient: Vipul Tucker 86 y/o M admitted on 02/27/22 for Electrolyte deficiency. Chief Complaint: [Dysphagia, failure to thrive] Principal diagnosis: Metastatic urothelial carcinoma Interval history: The patient was resting in his chair. He appears quite frail and cachectic. He is too weak to carry conversation. Discussed the case with the RN. Constitutional Vitals: Vital Signs Temp Pulse Resp BP Pulse Ox O2 Del Method O2 Flow Rate 99.6 F H 81 18 118/64 93 2 03/02/22 11:28 03/02/22 11:28 03/02/22 08:10 03/02/22 11:28 03/02/22 11:28 03/02/22 07:40 03/02/22 08:10 Period Temp Pulse Resp BP Sys/Downey Pulse Ox O2 Del Method O2 Flow Rate Last 24 Hr 97.5 F-99.6 F 76-88 16-20 93-120/59-68 92-99 Nasal Cannula 1- 2 Intake and Output 03/01/22 03/02/22 03/02/22 21:59 05:59 13:59 Intake Total 320 200 Output Total 102 243 300 Balance 218 -43 -300 Weight 77.655 kg Intake & Output: Intake & Output 03/01/22 03/02/22 03/02/22 21:59 05:59 13:59 Intake Total 320 200 Output Total 102 243 300 Balance 218 -43 -300 Weight 77.655 kg Intake: Nourishment/Supplement quantity 120 (ml) Oral 200 200 Output: Void Amount 100 240 300 # of times incontinent of urine 2 3 Other: Meal Lunch Percent of Meal Consumed 75% Nourishment/Supplement name ensure Urine Appearance Clear Clear Clear Urine Color Bright Yellow Bright Yellow Yellow Urine Odor Strong Normal Stool Size Small Small Stool Color Brown Brown Green Stool Consistency Liquid Liquid Watery Watery # Voids 1 3 # Bowel Movements 1 # of times incontinent of 1 Bowels General appearance: thin Head Head exam: Present atraumatic and normal inspection Eye Eye exam: Present normal appearance ENT ENT exam: Present mucous membranes moist, normal exam and normal external ear exam Neck Neck exam: Present normal inspection Respiratory Respiratory exam: Present normal respiratory exam Cardiovascular Cardiovascular exam: Present normal rate and rhythm GI/Abdominal GI/Abdominal exam: Present normal bowel sounds, soft and distended Back Exam Back exam: Present normal inspection Neurological Exam Neurological exam: Present alert and oriented X3 Skin Skin exam: Present intact and warm OBJ DATA Labs CBC & Chem 7: 03/01/22 05:33 Labs: Abnormal Lab Results 03/01/22 02/28/22 02/28/22 05:33 15:01 05:42 Potassium 3.0 L 3.1 L Carbon Dioxide Anion Gap 6.0 L 5.0 L 4.0 L Calcium 10.6 H 10.8 H Phosphorus 2.0 L 1.6 L Direct Bilirubin Total Protein 4.1 L 4.2 L Albumin 1.9 L 2.1 L Globulin 2.1 L Albumin/Globulin Ratio 0.9 L 02/27/22 10:20 Potassium 3.0 L Carbon Dioxide 32 H Anion Gap 5.0 L Calcium 11.8 H Phosphorus Direct Bilirubin 0.3 H Total Protein 4.9 L Albumin 2.0 L Globulin Albumin/Globulin Ratio 0.7 L Meds: Medications Acetaminophen (Acetaminophen 325 Mg Tablet) 650 mg PO Q6HP PRN; Protocol PRN Reason: Per Pain Protocol/Fever > 101 Albuterol/Ipratropium (Ipratropium/Albuterol 3 Ml Ampul.Neb) 3 ml NEB Q4HP PRN PRN Reason: Shortness Of Breath Diphenhydramine HCl (Diphenhydramine 25 Mg Capsule) 25 mg PO HSP PRN PRN Reason: Insomnia Docusate Sodium (Docusate Sodium 100 Mg Capsule) 100 mg PO BID [facility] Last Admin: 03/02/22 08:20 Dose: Not Given Enoxaparin Sodium (Enoxaparin 40 Mg/0.4 Ml Syringe) 40 mg SQ DAILY [facility] Last Admin: 03/02/22 08:20 Dose: 40 mg Potassium Chloride 40 meq/ (Dextrose) 520 mls @ 130 mls/hr IV UD PRN PRN Reason: Potassium < 3 Magnesium Sulfate (Magnesium Sulfate) 2 gm in 50 mls @ 50 mls/hr IV UD PRN PRN Reason: Magnesium </= 1.6 Loperamide HCl (Loperamide 2 Mg Capsule) 2 mg PO Q6H PRN PRN Reason: Diarrhea Last Admin: 03/02/22 09:48 Dose: 2 mg Melatonin (Melatonin 3 Mg Tablet) 3 mg PO QHS [facility] Last Admin: 03/01/22 20:23 Dose: 3 mg Multivitamins/Minerals (Vit A,C & E/Lutein/Minerals Tablet) 1 tab PO BID [facility] Last Admin: 03/02/22 08:19 Dose: 1 tab Ondansetron HCl (Ondansetron 4 Mg/2 Ml Vial) 4 mg IV Q4HP PRN PRN Reason: Nausea And Vomiting Polyethylene Glycol (Polyethylene Glycol 3350 17 Gm Packet) 17 gm PO DAILYP PRN PRN Reason: Constipation Potassium Chloride (Potassium Chloride 20 Meq Tablet) 40 meq PO UD PRN PRN Reason: Potssium is 3-3.5 Potassium Chloride (Potassium Chloride 20 Meq Tablet) 40 meq PO UD PRN PRN Reason: Potassium < 3 Senna (Sennosides 1 Tablet) 2 tab PO DAILYP PRN PRN Reason: Constipation Sodium Chloride (0.9 % Sodium Chloride 10 Ml Syringe) 10 ml IV Q8 [facility] Last Admin: 03/02/22 05:59 Dose: 10 ml Spironolactone (Spironolactone 25 Mg Tablet) 25 mg PO QDAY [facility] Last Admin: 03/02/22 08:20 Dose: 25 mg A/P Narrative A/P Narrative: A: *Electrolyte d/o (Hypokalemia/Hypercalcemia/Hypophos): improved -hypercalcemia of malignancy (likely PTHrp mechanism given tissue of origin) vs Vit D supp home med *Urothelial CA Stage IV, with many Lung mets: following with oncology *Generalized weakness/deconditioning/weight loss and poor appetite: 2/2 above -plan was for feeding tube to be placed next wednesday *Chronic Leukocytosis & Anemia: 2/2 above *Oropharyngeal Dysphagia, Mod-Sev: P: -03/02: The 2-year prognosis for patients with metastatic urothelial carcinoma is close to 5%. There needs to be further goals of care discussion with the famil y. At this time they are planning for a PEG tube. -replete and monitor electrolytes prn -IVF, s/p Bisphosphonate, -PTHrp,Vit D metabolites -Dietary consult -dysphagia diet per ST, f/u with GI or Dr. Chavez to eval for eso stricture -PT/OT -CM for placement needs -f/u with oncology/pcp/Dr. Chavez -ppx: lovenox Time Spent With Patient Time: Total time spent is greater than 50% in coordination of care (as documented) at patient's floor/unit and/or counseling patient: Total time spent with greater than 50% in coordination of care (as documented) at patient's floor/unit and/or counseling patient:: 25 - 35 minutes QUALITY VTE Deep Vein Thrombosis/Pulmonary Embolism Present on Admission: No
[2022-03-02] MEDS: MELATONIN 3 MG TABLET PO SCH (20:38)
[2022-03-03] MEDS: 0.9 % SODIUM CHLORIDE 10 ML SYRINGE IV SCH ×3 (05:40→20:15)
[2022-03-03] MEDS: LOPERAMIDE 2 MG CAPSULE PO PRN (08:23)
[2022-03-03] MEDS: VIT A,C & E/LUTEIN/MINERALS TABLET PO SCH ×2 (08:23→20:15)
[2022-03-03] MEDS: SPIRONOLACTONE 25 MG TABLET PO SCH (08:23)
[2022-03-03] MEDS: ENOXAPARIN 40 MG/0.4 ML SYRINGE SQ SCH (08:24)
[2022-03-03] MEDS: DOCUSATE SODIUM 100 MG CAPSULE PO SCH ×2 (08:24→20:15)
--- NOTE | 2022-03-03 10:33 | Internal Med Progress Note ---
SUBJECTIVE Subjective Patient information: Note initiated : 03/03/22 at 10:30 am Service Date, if different from initiated Date: [] Patient: Vipul Tucker 86 y/o M admitted on 02/27/22 for Electrolyte deficiency. Chief Complaint: [Dysphagia, failure to thrive] Principal diagnosis: Metastatic urothelial carcinoma Interval history: The patient was resting comfortably in his chair. There are concerns that he does not have full insight into his condition. He states that he is hoping to go back home after his PEG tube because he has plenty of work to do. He is not sure whether his immunotherapy is curative or palliative. He is not fully understand his prognosis. I had a long goals of care discussion with the who was present at the bedside yesterday. Constitutional Vitals: Vital Signs Temp Pulse Resp BP Pulse Ox O2 Del Method O2 Flow Rate 97.3 F 89 27 H 107/66 97 2 03/03/22 08:00 03/03/22 08:00 03/03/22 08:00 03/03/22 08:00 03/03/22 08:00 03/03/22 08:00 03/03/22 08:00 Period Temp Pulse Resp BP Sys/Downey Pulse Ox O2 Del Method O2 Flow Rate Last 24 Hr 97.1 F-99.6 F 75-89 14-31 91-125/55-72 92-98 Nasal Cannula- Nasal Cannula 2-2 Intake and Output 03/02/22 03/03/22 03/03/22 21:59 05:59 13:59 Intake Total 240 100 Output Total 1000 Balance 240 -900 Weight 75.296 kg Intake & Output: Intake & Output 03/02/22 03/03/22 03/03/22 21:59 05:59 13:59 Intake Total 240 100 Output Total 1000 Balance 240 -900 Weight 75.296 kg Intake: Oral 240 100 Output: Urine Catheter Amount 1000 Other: Meal Nourishment/Supplement Percent of Meal Consumed 100% Urine Appearance Clear Uretheral (Santos) Clear Clear Urine Color Yellow Uretheral (Santos) Yellow Yellow Stool Size Small Stool Color Brown Stool Consistency Loose General appearance: thin Head Head exam: Present atraumatic and normal inspection Eye Eye exam: Present normal appearance ENT ENT exam: Present mucous membranes moist, normal exam and normal external ear exam Neck Neck exam: Present normal inspection Respiratory Respiratory exam: Present normal respiratory exam Cardiovascular Cardiovascular exam: Present normal rate and rhythm GI/Abdominal GI/Abdominal exam: Present normal bowel sounds Back Exam Back exam: Present normal inspection Neurological Exam Neurological exam: Present alert Skin Skin exam: Present intact and warm OBJ DATA Labs CBC & Chem 7: 03/01/22 05:33 Labs: Abnormal Lab Results 03/01/22 02/28/22 05:33 15:01 Potassium 3.0 L Anion Gap 6.0 L 5.0 L Calcium 10.6 H Phosphorus 2.0 L Total Protein 4.1 L Albumin 1.9 L Albumin/Globulin Ratio 0.9 L Meds: Medications Acetaminophen (Acetaminophen 325 Mg Tablet) 650 mg PO Q6HP PRN; Protocol PRN Reason: Per Pain Protocol/Fever > 101 Albuterol/Ipratropium (Ipratropium/Albuterol 3 Ml Ampul.Neb) 3 ml NEB Q4HP PRN PRN Reason: Shortness Of Breath Diphenhydramine HCl (Diphenhydramine 25 Mg Capsule) 25 mg PO HSP PRN PRN Reason: Insomnia Docusate Sodium (Docusate Sodium 100 Mg Capsule) 100 mg PO BID [facility] Last Admin: 03/03/22 08:24 Dose: Not Given Enoxaparin Sodium (Enoxaparin 40 Mg/0.4 Ml Syringe) 40 mg SQ DAILY [facility] Last Admin: 03/03/22 08:24 Dose: Not Given Potassium Chloride 40 meq/ (Dextrose) 520 mls @ 130 mls/hr IV UD PRN PRN Reason: Potassium < 3 Magnesium Sulfate (Magnesium Sulfate) 2 gm in 50 mls @ 50 mls/hr IV UD PRN PRN Reason: Magnesium </= 1.6 Loperamide HCl (Loperamide 2 Mg Capsule) 2 mg PO Q6H PRN PRN Reason: Diarrhea Last Admin: 03/03/22 08:23 Dose: 2 mg Melatonin (Melatonin 3 Mg Tablet) 3 mg PO QHS [facility] Last Admin: 03/02/22 20:38 Dose: 3 mg Multivitamins/Minerals (Vit A,C & E/Lutein/Minerals Tablet) 1 tab PO BID [facility] Last Admin: 03/03/22 08:23 Dose: 1 tab Ondansetron HCl (Ondansetron 4 Mg/2 Ml Vial) 4 mg IV Q4HP PRN PRN Reason: Nausea And Vomiting Polyethylene Glycol (Polyethylene Glycol 3350 17 Gm Packet) 17 gm PO DAILYP PRN PRN Reason: Constipation Potassium Chloride (Potassium Chloride 20 Meq Tablet) 40 meq PO UD PRN PRN Reason: Potssium is 3-3.5 Potassium Chloride (Potassium Chloride 20 Meq Tablet) 40 meq PO UD PRN PRN Reason: Potassium < 3 Senna (Sennosides 1 Tablet) 2 tab PO DAILYP PRN PRN Reason: Constipation Sodium Chloride (0.9 % Sodium Chloride 10 Ml Syringe) 10 ml IV Q8 [facility] Last Admin: 03/03/22 05:40 Dose: 10 ml Spironolactone (Spironolactone 25 Mg Tablet) 25 mg PO QDAY [facility] Last Admin: 03/03/22 08:23 Dose: 25 mg A/P Narrative A/P Narrative: A: *Electrolyte d/o (Hypokalemia/Hypercalcemia/Hypophos): improved -hypercalcemia of malignancy (likely PTHrp mechanism given tissue of origin) vs Vit D supp home med *Urothelial CA Stage IV, with many Lung mets: following with oncology *Generalized weakness/deconditioning/weight loss and poor appetite: 2/2 above -plan was for feeding tube to be placed next wednesday *Chronic Leukocytosis & Anemia: 2/2 above *Oropharyngeal Dysphagia, Mod-Sev: P: -03/03: The would like to continue with full aggressive medical management per my goals of care discussion yesterday. He is scheduled for a PEG tube tomorrow. Dr. Chavez will be consulted to help with logistics and orders. We will discontinue spironolactone as his blood pressure is 107/66 and we do not want increases risk for dehydration. -03/02: The 2-year prognosis for patients with metastatic urothelial carcinoma is close to 5%. There needs to be further goals of care discussion with the fami ly. At this time they are planning for a PEG tube. -replete and monitor electrolytes prn -IVF, s/p Bisphosphonate, -PTHrp,Vit D metabolites -Dietary consult -dysphagia diet per ST, f/u with GI or Dr. Chavez to eval for eso stricture -PT/OT -CM for placement needs -f/u with oncology/pcp/Dr. Chavez -ppx: lovenox Time Spent With Patient Time: Total time spent is greater than 50% in coordination of care (as documented) at patient's floor/unit and/or counseling patient: Total time spent with greater than 50% in coordination of care (as documented) at patient's floor/unit and/or counseling patient:: 25 - 35 minutes QUALITY VTE Deep Vein Thrombosis/Pulmonary Embolism Present on Admission: No
[2022-03-03] MEDS ORDERED: CEFEPIME 2 GM VIAL IV SCH (13:30)
[2022-03-03] MEDS: MELATONIN 3 MG TABLET PO SCH (20:15)
[2022-03-04] MEDS: 0.9 % SODIUM CHLORIDE 10 ML SYRINGE IV SCH ×3 (05:55→21:00)
[2022-03-04] MEDS ORDERED: DEXAMETHASONE 10 MG/ML VIAL ONE (10:40)
[2022-03-04] MEDS ORDERED: PROPOFOL 200 MG/20 ML VIAL IV ONE (10:40)
[2022-03-04] MEDS ORDERED: LIDOCAINE HCL/PF 100 MG/5 ML SYRINGE IV ONE (10:40)
[2022-03-04] MEDS ORDERED: ONDANSETRON 4 MG/2 ML VIAL ONE (10:40)
[2022-03-04] MEDS: DOCUSATE SODIUM 100 MG CAPSULE PO SCH ×2 (11:07→21:00)
[2022-03-04] MEDS: SPIRONOLACTONE 25 MG TABLET PO SCH (11:07)
[2022-03-04] MEDS ORDERED: ACETAMINOPHEN 1,000 MG/100 ML BAG IV ONE (11:10)
[2022-03-04] MEDS ORDERED: fentaNYL 100 MCG/2 ML VIAL IV PRN (11:10)
[2022-03-04] MEDS ORDERED: MEPERIDINE 25 MG/ML VIAL IV PRN (11:10)
[2022-03-04] MEDS ORDERED: NALOXONE HCL 0.4 MG/ML VIAL IV PRN (11:10)
[2022-03-04] MEDS ORDERED: PROMETHAZINE 25 MG/ML VIAL IV PRN (11:10)
[2022-03-04] MEDS ORDERED: LACTATED RINGERS 250 ML IV PRN (11:10)
[2022-03-04] MEDS ORDERED: ONDANSETRON 4 MG/2 ML VIAL IV PRN (11:10)
[2022-03-04] MEDS ORDERED: diphenhydrAMINE 50 MG/ML VIAL IV PRN (11:10)
[2022-03-04] MEDS ORDERED: IPRATROPIUM/ALBUTEROL 3 ML AMPUL.NEB NEB PRN (11:10)
[2022-03-04] MEDS ORDERED: LACTATED RINGERS 1,000 ML IV SCH (11:15)
--- NOTE | 2022-03-04 11:20 | Brief Operative Note ---
Brief Operative Note Date of procedure: 03/04/22 Pre-op diagnosis: dysphagia ;aspiration Post-op diagnosis: other (esophageal candidiasis;dysphagia) Procedure: EGD WITH PEG TUBE PLACEMENT Grafts/Implants: Yes (PEG TUBE) Anesthesia: GETA Findings: SEVERE ORAL THRUSH ;SEVERE ORAL CANDIDIASIS Complications: none Surgeon: Steven Chavez Estimated blood loss (cc): 0 Specimens Removed/Pathology: none sent Condition: stable Disposition: PACU
--- NOTE | 2022-03-04 11:24 | Internal Med Progress Note ---
SUBJECTIVE Subjective Patient information: Note initiated : 03/04/22 at 11:23 am Service Date, if different from initiated Date: [] Patient: Vipul Tucker 86 y/o M admitted on 02/27/22 for Electrolyte deficiency. Chief Complaint: [] Principal diagnosis: Metastatic urothelial carcinoma Interval history: The patient was resting comfortably in bed. The was present at the bedside. Discussed the case with the RN who was also present at the bedside. The family do not want to discuss Constitutional Vitals: Vital Signs Temp Pulse Resp BP Pulse Ox O2 Del Method O2 Flow Rate 97.6 F 78 29 H 110/62 92 1.5 03/04/22 08:26 03/04/22 09:02 03/04/22 09:02 03/04/22 08:26 03/04/22 09:02 03/04/22 08:16 03/04/22 08:16 Period Temp Pulse Resp BP Sys/Downey Pulse Ox O2 Del Method O2 Flow Rate Last 24 Hr 97.6 F-98.8 F 74-89 21-29 105-130/57-71 92-99 Nasal Cannula-Nasal Cannula 1.5-2 Intake and Output 03/03/22 03/04/22 03/04/22 21:59 05:59 13:59 Intake Total 240 Output Total 850 850 Balance -850 -610 Weight 73.992 kg Intake & Output: Intake & Output 03/03/22 03/04/22 03/04/22 21:59 05:59 13:59 Intake Total 240 Output Total 850 850 Balance -850 -610 Weight 73.992 kg Intake: Oral 240 Output: Urine Catheter Amount 850 850 Other: Urine Appearance Clear Clear Uretheral (Santos) Clear Urine Color Yellow Yellow Uretheral (Santos) Yellow Urine Odor Normal Head Head exam: Present atraumatic and normal inspection Eye Eye exam: Present normal appearance ENT ENT exam: Present mucous membranes moist, normal exam and normal external ear exam Neck Neck exam: Present normal inspection Respiratory Respiratory exam: Present normal respiratory exam Cardiovascular Cardiovascular exam: Present normal rate and rhythm GI/Abdominal GI/Abdominal exam: Present normal bowel sounds Back Exam Back exam: Present normal inspection Neurological Exam Neurological exam: Present alert and oriented X3 Skin Skin exam: Present intact and warm OBJ DATA Labs CBC & Chem 7: 03/01/22 05:33 Meds: Medications Acetaminophen (Acetaminophen 325 Mg Tablet) 650 mg PO Q6HP PRN; Protocol PRN Reason: Per Pain Protocol/Fever > 101 Albuterol/Ipratropium (Ipratropium/Albuterol 3 Ml Ampul.Neb) 3 ml NEB Q4HP PRN PRN Reason: Shortness Of Breath Albuterol/Ipratropium (Ipratropium/Albuterol 3 Ml Ampul.Neb) 3 ml NEB ONCE PRN PRN Reason: Wheezing Stop: 03/04/22 13:10 Diphenhydramine HCl (Diphenhydramine 25 Mg Capsule) 25 mg PO HSP PRN PRN Reason: Insomnia Diphenhydramine HCl (Diphenhydramine 50 Mg/Ml Vial) 25 mg IV ONCE PRN PRN Reason: ITCH Stop: 03/04/22 13:10 Docusate Sodium (Docusate Sodium 100 Mg Capsule) 100 mg PO BID [facility] Last Admin: 03/04/22 11:07 Dose: Not Given Fentanyl (Fentanyl 100 Mcg/2 Ml Vial) 25 mcg IV Q2M PRN PRN Reason: Pain Stop: 03/04/22 13:10 Potassium Chloride 40 meq/ (Dextrose) 520 mls @ 130 mls/hr IV UD PRN PRN Reason: Potassium < 3 Magnesium Sulfate (Magnesium Sulfate) 2 gm in 50 mls @ 50 mls/hr IV UD PRN PRN Reason: Magnesium </= 1.6 Lactated Ringer's (Lactated Ringers) 1,000 mls @ 0 mls/hr IV PRN PRN PRN Reason: Hypovolemia Stop: 03/04/22 13:10 Lactated Ringer's (Lactated Ringers) 1,000 mls @ 20 mls/hr IV .Q24H PAULINA Stop: 03/04/22 13:10 Acetaminophen (Ofirmev) 1,000 mg in 100 mls @ 200 mls/hr IV ONCE ONE Stop: 03/04/22 11:39 Loperamide HCl (Loperamide 2 Mg Capsule) 2 mg PO Q6H PRN PRN Reason: Diarrhea Last Admin: 03/03/22 08:23 Dose: 2 mg Melatonin (Melatonin 3 Mg Tablet) 3 mg PO QHS PAULINA Last Admin: 03/03/22 20:15 Dose: 3 mg Meperidine HCl (Meperidine 25 Mg/Ml Vial) 12.5 mg IV Q5M PRN PRN Reason: Shivering Stop: 03/04/22 13:10 Multivitamins/Minerals (Vit A,C & E/Lutein/Minerals Tablet) 1 tab PO BID [facility] Last Admin: 03/03/22 20:15 Dose: 1 tab Naloxone HCl (Naloxone Hcl 0.4 Mg/Ml Vial) 0.1 mg IV Q2MIN PRN PRN Reason: Opiate Reversal Stop: 03/04/22 13:10 Ondansetron HCl (Ondansetron 4 Mg/2 Ml Vial) 4 mg IV Q4HP PRN PRN Reason: Nausea And Vomiting Ondansetron HCl (Ondansetron 4 Mg/2 Ml Vial) 4 mg IV ONCE PRN PRN Reason: Nausea And Vomiting Stop: 03/04/22 13:10 Polyethylene Glycol (Polyethylene Glycol 3350 17 Gm Packet) 17 gm PO DAILYP PRN PRN Reason: Constipation Potassium Chloride (Potassium Chloride 20 Meq Tablet) 40 meq PO UD PRN PRN Reason: Potssium is 3-3.5 Potassium Chloride (Potassium Chloride 20 Meq Tablet) 40 meq PO UD PRN PRN Reason: Potassium < 3 Promethazine HCl (Promethazine 25 Mg/Ml Vial) 6.25 mg IV Q15M PRN PRN Reason: Nausea And Vomiting Stop: 03/04/22 13:10 Senna (Sennosides 1 Tablet) 2 tab PO DAILYP PRN PRN Reason: Constipation Sodium Chloride (0.9 % Sodium Chloride 10 Ml Syringe) 10 ml IV Q8 [facility] Last Admin: 03/04/22 05:55 Dose: 10 ml Spironolactone (Spironolactone 25 Mg Tablet) 25 mg PO QDAY [facility] Last Admin: 03/04/22 11:07 Dose: Not Given A/P Narrative A/P Narrative: A: *Electrolyte d/o (Hypokalemia/Hypercalcemia/Hypophos): improved -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 We will monitor and see how he does over the next 24 hours while he is tolerating tube feeds. -03/03: The would like to continue with full aggressive medical management per my goals of care discussion yesterday. He is scheduled for a PEG tube tomorrow. Dr. Chavez will be consulted to help with logistics and orders. We will discontinue spironolactone as his blood pressure is 107/66 and we do not want increases risk for dehydration. -03/02: The 2-year prognosis for patients with metastatic urothelial carcinoma is close to 5%. There needs to be further goals of care discussion with the kashif donahue. At this time they are planning for a PEG tube. -replete and monitor electrolytes prn -IVF, s/p Bisphosphonate, -PTHrp,Vit D metabolites -Dietary consult -dysphagia diet per ST, f/u with GI or Dr. Chavez to eval for eso stricture -PT/OT -CM for placement needs -f/u with oncology/pcp/Dr. Chavez -ppx: lovenox Time Spent With Patient Time: Total time spent is greater than 50% in coordination of care (as documented) at patient's floor/unit and/or counseling patient: Total time spent with greater than 50% in coordination of care (as documented) at patient's floor/unit and/or counseling patient:: 25 - 35 minutes QUALITY VTE Deep Vein Thrombosis/Pulmonary Embolism Present on Admission: No
[2022-03-04] MEDS: FLUCONAZOLE 400 MG/200 ML BAG IV SCH (12:08)
[2022-03-04] MEDS: 0.9 % SODIUM CHLORIDE 1,000 ML IV SCH ×2 (12:08→21:53)
[2022-03-04] MEDS: VIT A,C & E/LUTEIN/MINERALS TABLET PO SCH ×2 (12:21→21:00)
[2022-03-04] MEDS: NYSTATIN 500,000 UNITS/5 ML ORAL.SUSP SSW SCH ×3 (13:38→21:00)
--- NOTE | 2022-03-04 14:35 | EGD Procedure Note ---
DATE OF PROCEDURE: 03/04/2022 PREOPERATIVE DIAGNOSES: Dysphagia with aspiration. POSTOPERATIVE DIAGNOSES: Dysphagia with oropharyngeal and esophageal candidiasis. PROCEDURE: Esophagogastroduodenoscopy with percutaneous endoscopic gastrostomy tube placement. SURGEON: Steven Chavez M.D. FINDINGS: Severe oral thrush and severe esophageal candidiasis. DESCRIPTION OF PROCEDURE: Under general anesthesia, the patient's abdomen was prepped and draped in a sterile field. His head was turned to the left and the endoscope was introduced. There was severe thrush involving his tongue and his oropharynx. This extended into the retropharynx and throughout most of his esophagus. There was mild friability of the esophagus. There were no ulcerations noted. GE junction was unremarkable. The stomach was unremarkable. There did not appear to be any significant inflammation. Pylorus and duodenum were normal. Scope was pulled back and the stomach was maximally insufflated. Palpation of the abdominal wall over the light revealed that the scope was adequately placed. The point of insertion of the tube was chosen and this was infiltrated with 1% lidocaine. An 18-gauge needle was passed through the abdominal wall into the stomach. This was pulled back and the cannulating needle was then passed uneventfully. The guidewire was then passed through the needle into the stomach. It was grasped with the grasper and was pulled through the oropharynx. The tube was placed onto the guidewire and the tube and guidewire was then pulled through the stomach and abdominal wall. The incision was made larger for the tube to be pulled through. Once the flange of the tube was against the abdominal wall, the scope was reintroduced and it was felt to be in adequate position. The retaining cross bar was placed and the other structures were placed, including the clip and the final attachments for irrigation and for feeding. Dressing was placed. The patient tolerated the procedure well. His oropharyngeal area was suctioned well by Anesthesia, and he was awakened and extubated. He was taken to the postanesthetic care unit in satisfactory condition. LCS:sigrid Job ID: [id number] Doc ID: [id number] Steven Chavez M.D.
[2022-03-04] MEDS: MELATONIN 3 MG TABLET PO SCH (21:00)
[2022-03-05] MEDS: 0.9 % SODIUM CHLORIDE 1,000 ML IV SCH ×2 (00:17→10:23)
[2022-03-05] MEDS: 0.9 % SODIUM CHLORIDE 10 ML SYRINGE IV SCH ×2 (05:20→15:48)
[2022-03-05 06:25] LABS: Basophils # (Auto) 0.02 K/mcL (0.00-0.30); Basophils % (Auto) 0.2 % (0.0-2.0); Eosinophils # (Auto) 0 K/mcL (0.00-0.70); Eosinophils % (Auto) 0 % (0.0-7.0); Hematocrit 29.5 % (40.1-51.0); Hemoglobin 9.2 g/dL (13.7-17.5); Lymphocytes % (Auto) 12.1 % (15.5-49.0); Mean Cell Volume 100.3 fL (80.0-100.0); Mean Corpuscular HGB Conc 31.2 g/dL (31.0-36.0); Mean Platelet Volume 10.3 fL (7.4-10.4); Monocytes % (Auto) 6.8 % (1.0-12.0); Neutrophils % (Auto) 79.8 % (38.0-78.0); Platelet Count 343 K/mcL (140-440); RBC 2.94 M/mcL (4.63-6.08); Red Cell Distribution Width 15.5 % (11.5-14.5); WBC 13.2 K/mcL (4.5-11.0)
[2022-03-05 06:42] LABS: ALT/SGPT 15 U/L (<40); AST/SGOT 23 U/L (<40); Albumin 1.9 gm/dL (3.2-5.2); Albumin/Globulin Ratio 0.8 (1.0-2.3); Alkaline Phosphatase 97 U/L (39-117); Bilirubin,Total 0.3 mg/dL (0.1-1.0); Blood Urea Nitrogen 14 mg/dL (8-23); Carbon Dioxide 26 mmol/L (22-30); Chloride 107 mmol/L (96-108); Globulin 2.5 gm/dL (2.2-3.7); Glomerular Filtration Rate 86; Glucose 79 mg/dL (70-105)
[2022-03-05] MEDS: DOCUSATE SODIUM 100 MG CAPSULE PO SCH (08:26)
[2022-03-05] MEDS: VIT A,C & E/LUTEIN/MINERALS TABLET PO SCH (08:42)
[2022-03-05] MEDS: NYSTATIN 500,000 UNITS/5 ML ORAL.SUSP SSW SCH ×3 (08:42→16:45)
[2022-03-05] MEDS: FLUCONAZOLE 400 MG/200 ML BAG IV SCH (10:26)
--- NOTE | 2022-03-05 12:38 | Discharge Summary ---
Discharge Provider Provider IMPORTANT FOLLOW-UP INFORMATION FOR PCP: 1. Repeat BMP, Mg, Phos next week 2. F/u with oncology 3. Consider palliative care referral Patient information: Note initiated : 03/05/22 at 12:37 pm Service Date, if different from initiated Date: [] Patient: Vipul Tucker 86 y/o M admitted on 02/27/22 for Electrolyte deficiency. 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 We will monitor and see how he does over the next 24 hours while he is tolerating tube feeds. -03/03: The would like to continue with full aggressive medical management per my goals of care discussion yesterday. He is scheduled for a PEG tube tomorrow. Dr. Chavez will be consulted to help with logistics and orders. We will discontinue spironolactone as his blood pressure is 107/66 and we do not want increases risk for dehydration. -03/02: The 2-year prognosis for patients with metastatic urothelial carcinoma is close to 5%. There needs to be further goals of care discussion with the family. At this time they are planning for a PEG tube. -replete and monitor electrolytes prn -IVF, s/p Bisphosphonate, -PTHrp,Vit D metabolites -Dietary consult -dysphagia diet per ST, f/u with GI or Dr. Chavez to eval for eso stricture -PT/OT -CM for placement needs -f/u with oncology/pcp/Dr. Chavez -ppx: lovenox 03/05: When I took over the care of this patient, he was medically stable but awaiting placement of his PEG tube which was done yesterday. The patient's been having issues with poor p.o. intake and overall weakness in the setting of malnutrition. During PEG tube placement yesterday he was also found to have esophageal candidiasis for which she has been prescribed nystatin swish and swallow. He will be discharged home once tube feeds, a Santos catheter, Imodium for incontinence, and supplemental O2. The patient's family were adamant about taking him home. He was not able to go to a long-term facility as he is due for Keytruda immunotherapy next week and there will be issues with insurance coverage. The discharge plan was discussed with the who is in agreement. Discharge diagnosis: Dysphagia, failure to thrive, metastatic urothelial carcinoma Time Spent with Patient Time attestation: Total time spent providing and/or coordinating discharge services: Time spent: Greater than 30 minutes EXAM Constitutional Vitals: Temp Pulse Resp BP Pulse Ox O2 Del Method O2 Flow Rate 98.3 F 86 25 H 105/55 95 2 03/05/22 08:01 03/05/22 08:01 03/05/22 08:01 03/05/22 08:01 03/05/22 08:01 03/04/22 23:43 03/05/22 08:01 General appearance: average body habitus Head Head exam: Present atraumatic, normal inspection and normocephalic Eye Eye exam: Present EOMI, normal appearance and PERRL; Absent conjunctival injection ENT ENT exam: Present normal exam; Absent mucous membranes dry Neck Neck exam: Present full ROM; Absent lymphadenopathy Respiratory Respiratory exam: Present normal respiratory exam and CTAB; Absent decreased breath sounds, respiratory distress or wheezes Cardiovascular Cardiovascular exam: Present normal rate and rhythm and RRR; Absent JVD GI/Abdominal GI/Abdominal exam: Present normal bowel sounds and soft; Absent diminished bowel sounds, distended, guarding, mass, rebound or tenderness Neurological Exam Neurological exam: Present alert, CN II-XII intact and oriented X3 Psychiatric Psychiatric exam: Present normal affect and normal mood Skin Skin exam: Present intact and warm; Absent erythema, pallor, petechiae or rash Discharge Data Data Completed and Pending Labs on day of discharge: Labs from last 24 hours 03/05/22 03/05/22 05:34 05:34 WBC 13.2 H RBC 2.94 L Hgb 9.2 L Hct 29.5 L MCV 100.3 H MCH 31.3 MCHC 31.2 RDW 15.5 H Plt Count 343 MPV 10.3 Immature Gran % (Auto) 1.1 H Neut % (Auto) 79.8 H Lymph % (Auto) 12.1 L [place] % (Auto) 6.8 Eos % (Auto) 0 Baso % (Auto) 0.2 Lymph # (Auto) 1.60 [place] # (Auto) 0.90 Eos # (Auto) 0 Baso # (Auto) 0.02 Immature Gran # 0.14 H Absolute Neutrophils 10.55 H Sodium 141 Potassium 3.2 L Chloride 107 Carbon Dioxide 26 Anion Gap 8.0 BUN 14 Creatinine 0.7 GFR Calculation 86 Glucose 79 Calcium 10.0 Total Bilirubin 0.3 AST 23 ALT 15 Alkaline Phosphatase 97 Total Protein 4.4 L Albumin 1.9 L Globulin 2.5 Albumin/Globulin Ratio 0.8 L Discharge Plan Patient/Caregiver Discharge Instructions Activity: increase activity as tolerated and resume usual activities as tolerated Diet: Dysphagia Level 4 Pureed Foods and Thickened Liquids Instructions: Weakness (DC) Activity Restrictions/Additional Instructions: Diet of Honey thick liquids and level 4 diet - pureed foods Increase activity as tolerated. Continue fall precautions. Follow-up with oncologist. Contact the office on Friday 03/02 to schedule. Follow-up with Dr. Steven Chavez. Contact the office on Friday 03/02 to schedule. Return to ER for fever, chills, uncontrolled pain, inability to urinate or have a bowel movement, nausea and/or vomiting, swelling, redness, signs of infection, shortness of breath, chest pain, return of symptoms, or other acute symptom. This discharge packet is provided to you to help keep you informed about your care. We want to ensure you get everything you need when you go home. You will also be receiving a call from us in a few days to follow up with you and see how you are doing since your discharge. This gives us a chance to listen to any concerns you maybe experiencing since you were discharged or any additional needs you may have, as well as providing us feedback on your care experience. We strive to always provide excellent care and thank you for your feedback and for choosing [facility]. Prescriptions: New nystatin 100,000 unit/mL Suspension 500,000 units SSW QID 10 Days Qty: 200 0RF loperamide 2 mg Capsule 2 mg PO Q6H PRN (Reason: Diarrhea) Qty: 30 0RF Continued pravastatin 40 mg tablet 40 mg PO HS Qty: 90 3RF turkey tail 1 tab tablet See Rx Instructions .ROUTE .COMPLEX Rx Instructions: 1 tab orally 8 x daily PreserVision AREDS 1,000 mg 1,000 mg PO BID Vitamin D3 2,000 mg 2,000 mg PO 3XD garlic 1,000 mg 1,000 mg PO DAILY coenzyme Q10 [CoQ-10] 100 mg Capsule 300 mg PO QDAY Discontinued metoclopramide HCl 10 mg tablet 1 tab PO QID Rx Instructions: before meals and at bedtime spironolactone 25 mg tablet 25 mg PO QDAY Follow Up Plan Follow up with: Andrei Sanon MD [Primary Care Provider] - (Follow-up as needed) Steven Chavez MD [Physician] - (Contact the office on Friday 03/02 to schedule) Srinivas Lopez MD [Physician] - 03/10/22 (Continue with your currently scheduled appointment) Patient Disposition: Home, Self-Care Prognosis: Fair I certify that the patient requires SNF services: No Overall status at discharge: patient is progressing back to baseline Discharge Orders: Discharge Order (Routine); Ordered 03/05/22 Ordered By: Liseth [facility] VTE Deep Vein Thrombosis/Pulmonary Embolism Present on Admission: No
[2022-03-06 11:22] LABS: Vit D 1,25 Dihydroxy 43 pg/mL (18-72)
[2022-03-10 17:22] LABS: PTH Related Protein-SO 57 pg/mL (11-20)
== END 2022-03-05 17:40 | disposition home or self-care (01) | DRG 392 ==
LOC: ED 00:08 → ICU 01:45
PROVIDERS: ADMIT Internal Medicine; ATTEND Internal Medicine